=== PATIENT | female | born 1945 | race Caucasian/White ===

== ENCOUNTER → 2018-03-30 | Outpatient (CLI) | payer BC, MEDICARE, OTHER ==
[2018-03-30 16:14] LABS: ABSOLUTE BASOPHILS 0.1 thou/uL (0.0-0.2); ABSOLUTE EOSINOPHILS 0.3 thou/uL (0.0-0.7); ABSOLUTE LYMPHOCYTES 2.5 thou/uL (0.8-5.3); ABSOLUTE MONOCYTES 0.5 thou/uL (0.0-1.2); ABSOLUTE NEUTROPHILS 4.8 thou/uL (1.6-8.1); BASOPHILS 1.3 %; EOSINOPHILS 3.5 %; HEMATOCRIT 37.9 % (37.0-47.0); HEMOGLOBIN 12.4 gm/dL (12.0-15.0); MCH 28.9 pg (26.0-34.0); MCHC 32.6 g/dL (28.0-37.0); MCV 88.7 fL (80.0-100.0); MONOCYTES 6.1 %; MPV 9.2 fl. (7.2-11.1); NUCLEATED RBCS 0 /100WBC; PLATELET COUNT* 250 thou/uL (150-400); POLYS 59.1 %; RBC 4.27 mil/uL (4.20-5.00); RDW-CV 12.7 % (10.5-14.5); WBC 8.2 thou/uL (4.0-11.0)
[2018-03-30 16:18] LABS: CALCIUM 9.4 mg/dL (8.5-10.1); CREATININE 0.8 mg/dL (0.6-1.3); POTASSIUM 3.8 mmol/L (3.5-5.1)
[2018-03-30 16:22] LABS: ALBUMIN 3.9 g/dL (3.4-5.0); TOTAL BILIRUBIN 0.4 mg/dL (<0.1-1.0); TOTAL PROTEIN 7.9 g/dL (6.4-8.2)
== END | disposition home or self-care (01) ==
LOC: M.CT 15:51
PROVIDERS: Internal Medicine
DX: N20.0 Calculus of kidney (principal); R10.9 Unspecified abdominal pain; K57.30 Diverticulosis of large intestine without perforation or abscess without bleeding

== ENCOUNTER → 2018-12-08 | Day surgery (SDC) | payer BC, MEDICARE, OTHER ==
[~2018-12-08] MED LIST: AMBIEN 5 MG TABL5 M1 PO; COZAAR 25 MG TA25 M1 PO; HYDROCHLOROTHIA25 M2 PO; KEFLEX500 M1 PO; NORCO 10-325 T1 EACH PO; PROTONIX 20 MG20 M1 PO; SYNTHROID112 MC1 PO; TENORMIN50 MG PO; VITAMIN D2000 UNIT PO
--- NOTE | ~2018-12-08 | OP ---
[facility] [address] [place] [address] OPERATIVE REPORT Name: DULCE ZARAGOZA Room: [facility].#: [id number] Admission: 12/08/18 Attend Phys: Kobi Schulte Discharge: Date of : 47 Report #: [id number] THIS REPORT FOR: //name// CC: Anand Schulte DATE OF SERVICE: 12/08/2018 PREOPERATIVE DIAGNOSIS: Right axillary abscess. POSTOPERATIVE DIAGNOSIS: Right axillary abscess. OPERATION: Incision and drainage of right axillary abscess. SURGEON: Kobi Schulte MD ANESTHESIA: General. ESTIMATED BLOOD LOSS: Minimal. SPECIMEN: Right axillary mass. DESCRIPTION OF PROCEDURE: After informed consent was obtained, the patient was brought to the operating room and placed supine. SCDs were placed and working. Preoperative antibiotics were administered, general anesthesia was induced. The right axilla was prepped and draped in the usual sterile fashion. It was marked prior to timeout. I made an elliptical incision measuring 1 x 1 cm around the palpable area of fluctuance. Cautery dissection was made down into the subcutaneous fat. There was a hard mass inside this abscess, which was excised. The area was then copiously irrigated. Cultures were taken. This was then packed with sterile gauze. Sterile dressings were applied. COMPLICATIONS: None. DISPOSITION: The patient was taken to recovery in satisfactory condition. By: 0851 [id number] Schulte MD /aníbal
[2018-12-08 06:44] LABS: HEMOGLOBIN 12.6 gm/dL (12.0-15.0); MCH 28.7 pg (26.0-34.0); MCHC 33.1 g/dL (28.0-37.0); MCV 86.6 fL (80.0-100.0); MPV 8.9 fl. (7.2-11.1); RBC 4.39 mil/uL (4.20-5.00); RDW-CV 13.1 % (10.5-14.5); WBC 11.3 thou/uL (4.0-11.0)
[2018-12-08 06:55] LABS: CALCIUM 9.9 mg/dL (8.5-10.1); CREATININE 0.7 mg/dL (0.6-1.3); POTASSIUM 3.8 mmol/L (3.5-5.1)
[2018-12-08 07:04] LABS: ALBUMIN 3.9 g/dL (3.4-5.0); TOTAL BILIRUBIN 0.3 mg/dL (<0.1-1.0); TOTAL PROTEIN 8.1 g/dL (6.4-8.2)
--- NOTE | 2018-12-08 12:57 | EKG ---
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
--- NOTE | 2018-12-09 15:05 | PATH ---
[address] [address] PATHOLOGY RPT PROCEDURE Name: DULCE ZARAGOZA Room: [facility].#: [id number] Admission: 12/08/18 Date of : 47 Discharge: Report #: [id number] Path Case #: [id number] [facility] Accession Number: [id number] . 01 Material submitted: . axillary tail of breast - RIGHT AXILLARY MASS. Modifiers: right . 01 Clinical history: . Cutaneous abscess right axilla . 02 Diagnosis: Right axillary mass: - Benign skin with abscess and focal foreign body-type granulomatous response suggesting ruptured epidermal inclusion cyst. (JULIA:lito; 12/09/2018) MBR/12/09/2018 . 02 Electronically signed: . Lester Camarena MD, Pathologist NPI- [id number] . 01 Gross description: . The specimen is received in formalin, labeled "Russell Flater, Dulce, Rt axillary mass" and consists of an unoriented ovoid segment of pink skin measuring 1.5 x 1.2 x 1.2 cm. Sectioning reveals extensive underlying abscess tissue and data entry representative sections are submitted in A1. (SDY; 12/08/2018) SYU/SYU . 02 Pathologist provided ICD-10: L02.411 . 02 CPT . 437144 Specimen Comment: A courtesy copy of this report has been sent to Specimen Comment: [phone], . Specimen Comment: Report sent to / DR ELIZABETH Performed at: [address] [facility], [place], [place] [id number] MD Brayan Gleason MD Phone: [phone] Performed at: 02 [facility] [address], [place], [place] [id number] MD Lester Camarena MD Phone: [phone]
== END | disposition home or self-care (01) ==
LOC: M.SUR 06:22
PROVIDERS: Surgery
DX: L02.411 Cutaneous abscess of right axilla (principal); Z79.899 Other long term (current) drug therapy; Z91.041 Radiographic dye allergy status; Z88.8 Allergy status to other drugs, medicaments and biological substances; Z79.891 Long term (current) use of opiate analgesic

== ENCOUNTER 2019-03-29 12:56 | Inpatient (IN) | payer BC, MEDICARE, OTHER ==
[~2019-03-29] VITALS: Ht 152.4 cm; Wt 70.8 kg
[2019-03-29 13:05] VITALS: BP 171/49
[2019-03-29 13:59] LABS: ABSOLUTE BASOPHILS 0.1 thou/uL (0.0-0.2); ABSOLUTE EOSINOPHILS 0.2 thou/uL (0.0-0.7); ABSOLUTE MONOCYTES 0.7 thou/uL (0.0-1.2); ABSOLUTE NEUTROPHILS 7.3 thou/uL (1.6-8.1); BASOPHILS 0.8 %; EOSINOPHILS 2.2 %; HEMATOCRIT 37.8 % (37.0-47.0); HEMOGLOBIN 12.5 gm/dL (12.0-15.0); LYMPHOCYTES 19.4 %; MCH 28.7 pg (26.0-34.0); MCHC 33.2 g/dL (28.0-37.0); MCV 86.5 fL (80.0-100.0); MONOCYTES 7.2 %; MPV 9.6 fl. (7.2-11.1); NUCLEATED RBCS 0 /100WBC; PLATELET COUNT* 234 thou/uL (150-400); POLYS 70.4 %; RBC 4.37 mil/uL (4.20-5.00); RDW-CV 12.4 % (10.5-14.5); WBC 10.3 thou/uL (4.0-11.0)
[2019-03-29 14:12] LABS: ALBUMIN 3.9 g/dL (3.4-5.0); CALCIUM 9.7 mg/dL (8.5-10.1); CREATININE 0.8 mg/dL (0.6-1.3); MAGNESIUM 1.9 mg/dL (1.8-2.4); POTASSIUM 3.8 mmol/L (3.5-5.1); TOTAL BILIRUBIN 0.6 mg/dL (<0.1-1.0); TOTAL PROTEIN 7.8 g/dL (6.4-8.2)
[2019-03-29 15:56] LABS: URINE BILIRUBIN NEGATIVE (Negative); URINE BLOOD NEGATIVE (Negative); URINE CLARITY CLEAR; URINE COLOR YELLOW; URINE GLUCOSE-RANDOM NEGATIVE (Negative); URINE KETONES NEGATIVE (Negative); URINE LEUKOCYTES-REFLEX NEGATIVE (Negative); URINE NITRITE-REFLEX NEGATIVE (Negative); URINE PROTEIN NEGATIVE (Negative); URINE UROBILINOGEN 0.2 E.U./dl (0.2-1.0)
[2019-03-29 16:20] VITALS: BP 150/67
[2019-03-29 19:30] VITALS: BP 155/75
[2019-03-30 09:05] VITALS: BP 146/59
[2019-03-30 14:00] VITALS: BP 145/56
[2019-03-30 21:00] VITALS: BP 170/54
[2019-03-31 05:28] LABS: ABSOLUTE BASOPHILS 0.1 thou/uL (0.0-0.2); ABSOLUTE EOSINOPHILS 0.2 thou/uL (0.0-0.7); ABSOLUTE LYMPHOCYTES 2.3 thou/uL (0.8-5.3); ABSOLUTE MONOCYTES 0.7 thou/uL (0.0-1.2); ABSOLUTE NEUTROPHILS 5.5 thou/uL (1.6-8.1); BASOPHILS 0.6 %; EOSINOPHILS 2.5 %; HEMATOCRIT 35.1 % (37.0-47.0); HEMOGLOBIN 11.6 gm/dL (12.0-15.0); LYMPHOCYTES 26.7 %; MCH 28.5 pg (26.0-34.0); MCHC 33.1 g/dL (28.0-37.0); MCV 86.2 fL (80.0-100.0); MONOCYTES 8.1 %; MPV 9.2 fl. (7.2-11.1); NUCLEATED RBCS 0 /100WBC; PLATELET COUNT* 236 thou/uL (150-400); POLYS 62.1 %; RBC 4.08 mil/uL (4.20-5.00); WBC 8.8 thou/uL (4.0-11.0)
[2019-03-31 06:23] LABS: CALCIUM 9.5 mg/dL (8.5-10.1); CREATININE 0.8 mg/dL (0.6-1.3)
[2019-03-31 08:41] VITALS: BP 121/62
[2019-03-31 09:20] VITALS: BP 121/62
--- NOTE | 2019-03-31 11:28 | CON ---
[address] [address] CONSULTATION Name: DULCE ZARAGOZA Room: [address] IN .R.#: [id number] Admission: 03/29/19 Attend Phys: Mckayla Nagel Discharge: Date of : 47 Report #: [id number] THIS REPORT FOR: //name// CC: Anand Miranda DATE OF SERVICE: 03/30/2019 INFECTIOUS DISEASE CONSULTATION ATTENDING PHYSICIAN: Dr. Muniz. REASON FOR EVALUATION: Left-sided periorbital/preseptal cellulitis. HISTORY OF PRESENT ILLNESS: Chart reviewed, patient examined. This is a 73-year-old generally with history of hypertension, hypothyroidism, who developed a reddish type lesion over the left distal aspect of her nose, over the last several days, has been somewhat bothersome to her. She did pick at it. It subsequently became more inflamed, indurated, hard. She attempted to use a warm moist heat. She was evaluated, placed on clindamycin. Of note, she is unable to swallow pills. It is not clear that she has significant systemic illness, no fevers or chills. Appetite has been fair. No pulmonary or gastrointestinal related complaints. She was empirically started on cefepime. Lactic acid was 1.1. White count was normal at 10.3. She has a moderate degree of pain and discomfort at this point. ALLERGIES: Listed to CONTRAST DYE, MORPHINE, METHYLPREDNISOLONE. CURRENT MEDICATIONS: Include atenolol, cholecalciferol, losartan, hydrochlorothiazide, pantoprazole, levothyroxine, Silvadene, p.r.n. analgesics, antiemetics, and cefepime. PAST MEDICAL HISTORY: Above noted hypertension, history of hypothyroidism, renal lithiasis, history of atrial fibrillation, total right knee arthroplasties, cholecystectomy, history of diverticulitis with previous colon resection, hysterectomy. SOCIAL HISTORY: Nonsmoker, no ethanol, no illicit drug use. FAMILY HISTORY: Noncontributory. REVIEW OF SYSTEMS: Otherwise, unremarkable 10-point review of systems with exception as noted above in history of present illness. PHYSICAL EXAMINATION: GENERAL: She is alert, cooperative, appropriate. She is lucid, [place] [address] CONSULTATION Name: DULCE ZARAGOZA Room: [address] IN [facility].#: [id number] Admission: 03/29/19 Attend Phys: Mckayla Nagel Discharge: Date of : 47 Report #: [id number] reasonably well nourished, [id number] distress. VITAL SIGNS: Temperature 98.4, T-max 99, pulse 66, respirations 16, blood pressure 146/59. SKIN: Warm, dry, no rashes. HEENT: She is normocephalic. Extraocular muscles intact. She does have moderate inflammation noted in the left side of the face involving the maxillary, under the lateral nose, seemed to be circumferential around the orbit. There is induration. There is a lesion noted as described above at the lateral margin of the left-sided nose, it is quite indurated. There is a bit of an eschar. There is moderate discomfort. I do not appreciate any fluctuance. LUNGS: Clear to auscultation. HEART: Regular rate and rhythm without murmur. ABDOMEN: Soft, nontender, nondistended. EXTREMITIES: No cyanosis. GENITOURINARY: Deferred. RECTAL: Deferred. LABORATORY DATA: Urinalysis unremarkable. Chest x-ray showed no acute process. Electrolytes: Sodium 137, potassium 3.8, chloride 101, bicarbonate is 25, anion gap 11, BUN and creatinine 16 and 0.8, and glucose of 93. LFTs unremarkable. Albumin of 3.9, total protein 7.8, estimated GFR of 71. CBC: White count of 10.3, H and H 12.5 and 37.8, platelets 234. Differential unremarkable. ASSESSMENT: Left preseptal and inflammatory eruption, likely a component of skin and soft tissue infection with cellulitis. PLAN: We will adjust antimicrobial therapy at this point. Presumed streptococcal ____ staphylococcal etiology. Continue warm moist heat to the site. Topical mupirocin. Blood cultures in progress. We will await those results. If it localizes, consider drainage procedure or at least a culture of the material, discussed in detail with the patient and her son. <ELECTRONICALLY SIGNED> By: Arturo Roach MD 03/31/19 [id number] Roach MD /nt
[2019-03-31 13:01] VITALS: BP 139/65
[2019-03-31 16:09] VITALS: BP 139/66
[2019-03-31 20:00] VITALS: BP 161/50
[2019-04-01 08:00] VITALS: BP 147/64
[2019-04-01 15:38] VITALS: BP 145/65
[2019-04-01 21:49] VITALS: BP 150/71
[2019-04-02 07:45] VITALS: BP 145/69
[2019-04-02 09:42] VITALS: BP 145/69
[2019-04-02 11:43] VITALS: BP 145/69
[2019-04-02] MEDS ORDERED: AUGMENTIN 875-1 EACH PO (11:45)
[2019-04-02 14:17] VITALS: BP 145/69
== END 2019-04-02 14:19 | disposition home or self-care (01) | DRG 603 ==
LOC: M.ORTHSURG 12:56
PROVIDERS: Internal Medicine; ADMIT Internal Medicine
DX: L03.213 Periorbital cellulitis (principal); I10 Essential (primary) hypertension; E03.9 Hypothyroidism, unspecified; G89.29 Other chronic pain; Z96.651 Presence of right artificial knee joint; I48.91 Unspecified atrial fibrillation; K64.9 Unspecified hemorrhoids; F42.9 Obsessive-compulsive disorder, unspecified; M19.90 Unspecified osteoarthritis, unspecified site; M54.9 Dorsalgia, unspecified; Z88.8 Allergy status to other drugs, medicaments and biological substances; Z88.6 Allergy status to analgesic agent; Z91.041 Radiographic dye allergy status; Z90.710 Acquired absence of both cervix and uterus; Z90.49 Acquired absence of other specified parts of digestive tract; Z87.442 Personal history of urinary calculi

== ENCOUNTER → 2019-11-09 | Outpatient (CLI) | payer BC, MEDICARE, OTHER ==
[~2019-11-09] MED LIST changes: +AUGMENTIN 875-1 EACH PO
== END ==
LOC: M.CT 10:33
DX: J84.10 Pulmonary fibrosis, unspecified (principal); J98.4 Other disorders of lung; R11.0 Nausea; I70.0 Atherosclerosis of aorta; I25.10 Atherosclerotic heart disease of native coronary artery without angina pectoris; M79.89 Other specified soft tissue disorders; M48.04 Spinal stenosis, thoracic region; M25.78 Osteophyte, vertebrae